=== PATIENT | male | born 1930 | race Caucasian/White ===

== ENCOUNTER 2016-08-06 17:57 | Emergency (ER) | payer OTHER, MEDICARE ==
[2016-08-06 19:34] LABS: CHLORIDE,CL 100 mmol/L (101-111); SODIUM,NA 140 mmol/L (135-145)
[2016-08-06 20:03] VITALS: BP 117/60
--- NOTE | 2016-08-06 21:08 | EDM.PDOC ---
ED HPI GENERAL MEDICAL PROBLEM - General Chief Complaint: Trauma Stated Complaint: FELL, LEFT HIP PAIN Time Seen by Provider: 08/06/16 19:15 Source of Information: Reports: Patient, Family History Limitations: Reports: Other (severe hearing impairment) - History of Present Illness INITIAL COMMENTS - FREE TEXT/NARRATIVE: Son reports patient returned home today from ureteral stent replacement in bathroom fell and unable to get up, complained of left hip pain. Did not hit head, no loss of consciousness. Arrival to ED via private vehicle . Transfer with assist to cot. Onset: Today Location: Reports: Lower Extremity, Left Quality: Reports: Sharp Severity: Moderate (with movement) Improves with: Reports: Immobilization Worsens with: Reports: Movement Context: Reports: Other (fall at home) Associated Symptoms: Reports: No Other Symptoms Left Leg Pain Score (Numeric/FACES): 3 - Related Data Allergies Allergy/AdvReac Type Severity Reaction Status Date / Time No Known Allergies Allergy Verified 12/21/14 10:49 Home Meds: Home Meds Enalapril [Vasotec] 20 mg ORAL.INH BID 12/21/14 [History] Finasteride [Proscar] 5 mg ORAL.INH DAILY 12/21/14 [History] Nitrofurantoin 100 mg ORAL.INH BID 12/21/14 [History] Past Medical History HEENT History: Reports: Hard of Hearing, Impaired Vision Cardiovascular History: Reports: Hypertension Respiratory History: Reports: SOB Other Genitourinary History: blood in urine Psychiatric History: Reports: Addiction Oncologic (Cancer) History: Reports: Renal - Past Surgical History Other GI Surgeries/Procedures: Cystostomy Social & Family History - Family History Family Medical History: Noncontributory - Tobacco Use Smoking Status *Q: Current Every Day Smoker Years of Tobacco use: 70 Packs/Tins Daily: 20 Used Tobacco, but Quit: No Second Hand Smoke Exposure: Yes - Caffeine Use Caffeine Use: Reports: Coffee - Alcohol Use Days Per Week of Alcohol Use: 1 Number of Drinks Per Day: 2 Total Drinks Per Week: 2 - Recreational Drug Use Recreational Drug Use: No - Living Situation & Occupation Living situation: Reports: , with Family Occupation: Retired Review of Systems - Review of Systems Review Of Systems: See Below Constitutional: Reports: No Symptoms Eyes: Reports: No Symptoms, Glasses Ears: Reports: Other (heard of hearing) Nose: Reports: No Symptoms Mouth/Throat: Reports: No Symptoms Respiratory: Reports: Cough, Other (smoker) Cardiovascular: Denies: Chest Pain GI/Abdominal: Reports: No Symptoms Genitourinary: Reports: Other (ureteral stent replaced, 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" per son) Musculoskeletal: Reports: Joint Pain (left leg and hip) Skin: Reports: No Symptoms ED EXAM, GENERAL - Physical Exam Exam: See Below Exam Limited By: No Limitations General Appearance: Alert, Mild Distress (with movment), Thin Eye Exam: Bilateral Eye: EOMI, PERRL (4mm) Ears: Normal External Exam, Normal TMs Nose: Normal Inspection Throat/Mouth: Normal Inspection Head: Atraumatic, Normocephalic Neck: Normal Inspection, Full Range of Motion Respiratory/Chest: No Respiratory Distress, Crackles (fine bases), Other (odor tobacco, ocassional loose cough) Cardiovascular: Normal Peripheral Pulses, Regular Rate, Rhythm GI/Abdominal: Normal Bowel Sounds Extremities: Other (pain left hip upper femur, no gross deformity, pedal pulse + ). No: Normal Range of Motion Psychiatric: Normal Affect Skin Exam: Warm, Dry, Intact, Normal Color EKG INTERPRETATION Rhythm: NSR Course - Vital Signs Last Recorded V/S: Last Vital Signs Temp 98.3 F 08/06/16 18:45 Pulse 84 08/06/16 18:45 Resp 17 08/06/16 18:45 BP 117/60 08/06/16 18:45 Pulse Ox 80 L 08/06/16 18:45 - Orders/Labs/Meds Orders: Active Orders 24 hr Category Date Time Status EKG 12 Lead [EKG Documentation Completion] [RC] URGENT Care 08/06/16 19:26 Active Labs: Laboratory Tests 08/06/16 08/06/16 Range/Units 18:57 18:57 WBC 13.0 H (5.0-10.0) 10^3/uL RBC 5.33 (4.6-6.2) 10^6/uL Hgb 16.7 (14.0-18.0) g/dL Hct 48.9 (40.0-54.0) % MCV 91.7 (80-100) fL MCH 31.3 (27.0-34.0) pg MCHC 34.2 (33.0-35.0) g/dL Plt Count 265 (150-450) 10^3/uL Neut % (Auto) 78.4 H (42.2-75.2) % Lymph % (Auto) 14.2 L (20.5-50.1) % [place] % (Auto) 6.9 (2-8) % Eos % (Auto) 0.3 L (1.0-3.0) % Baso % (Auto) 0.2 (0.0-1.0) % Sodium 140 (135-145) mmol/L Potassium 4.1 (3.6-5.0) mmol/L Chloride 100 L (101-111) mmol/L Carbon Dioxide 26.0 (21.0-31.0) mmol/L Anion Gap 18.1 BUN 17 (7-18) mg/dL Creatinine 1.3 (0.6-1.3) mg/dL Est Cr Clr Drug Dosing TNP Estimated GFR (MDRD) 53 BUN/Creatinine Ratio 13.07 Glucose 101 (74-105) mg/dL Calcium 9.5 (8.4-10.2) mg/dl Total Bilirubin 0.5 (0.2-1.0) mg/dL AST 17 (10-42) IU/L ALT 17 (10-60) IU/L Alkaline Phosphatase 96 (42-121) IU/L Troponin I < 0.02 (0.00-0.02) ng/ml Total Protein 8.3 H (6.7-8.2) g/dl Albumin 4.2 (3.2-5.5) g/dl Globulin 4.1 Albumin/Globulin Ratio 1.02 Meds: Medications Discontinued Medications Generic Name Dose Route Start Last Admin Trade Name Jena PRN Reason Stop Dose Admin Fentanyl 25 mcg 08/06/16 21:32 08/06/16 21:37 Sublimaze IVPUSH 08/06/16 21:33 25 mcg ONETIME ONE Administration Ondansetron HCl 4 mg 08/06/16 21:31 08/06/16 21:37 Zofran IV 08/06/16 21:32 4 mg ONETIME ONE Administration - Radiology Interpretation Free Text/Narrative:: CT left femoral neck fracture - Re-Assessments/Exams Free Text/Narrative Re-Assessment/Exam: 08/06/16 21:57 GSC on admission, No cervical or c/o back pain, Alert, KENAITZE, conversant with son. XT results discussed with son. Patient aware. Son notes patient to be DNR , DNI. Patient transfer accepted by Dr. Curtis, ED provider further eval and managment of patient. Tx via LRAS stable condition. Departure - Departure Time of Disposition: 22:01 Disposition: DC/Tfer to Acute Hospital 02 Condition: Undetermined Clinical Impression: Status post ureteral reimplantation Femoral neck fracture Qualifiers: Encounter type: initial encounter Fracture type: closed Laterality: left Qualified Code(s): S72.002A - Fracture of unspecified part of neck of left femur , initial encounter for closed fracture Fall at home Qualifiers: Encounter type: initial encounter Qualified Code(s): W19.XXXA - Unspecified fall, initial encounter; Y92.099 - Unspecified place in other non-institutional residence as the place of occurrence of the external cause - Discharge Information Forms: ED Department Discharge - My Orders Last 24 Hours: My Active Orders 08/06/16 19:26 EKG 12 Lead [EKG Documentation Completion] [RC] URGENT - Assessment/Plan Last 24 Hours: My Active Orders 08/06/16 19:26 EKG 12 Lead [EKG Documentation Completion] [RC] URGENT
[2016-08-06] MEDS ORDERED: Ondansetron 4 MG/2 ML SDV IV ONE (21:31)
[2016-08-06] MEDS ORDERED: fentaNYL 100 MCG/2 ML SDV IVPUSH ONE (21:32)
== END 2016-08-06 21:41 ==
LOC: DL.ED 17:57
DX: S72.002A Fracture of unspecified part of neck of left femur, initial encounter for closed fracture (principal); I10 Essential (primary) hypertension; F17.210 Nicotine dependence, cigarettes, uncomplicated; Z85.528 Personal history of other malignant neoplasm of kidney; Z98.890 Other specified postprocedural states; Z79.899 Other long term (current) drug therapy; W19.XXXA Unspecified fall, initial encounter; Y92.099 Unspecified place in other non-institutional residence as the place of occurrence of the external cause
CPT/HCPCS: 36415; 72192; 80053; 84484; 85025; 93005; 93010; 96374; 96375; 99285; J2405; J3010